=== PATIENT | male | born 1950 | race Caucasian/White ===

== ENCOUNTER 2018-09-21 09:56 | Emergency (ER) | payer MEDICARE ==
[~2018-09-21] VITALS: Ht 167.6 cm; Wt 95.5 kg
[~2018-09-21 09:56] MED LIST: ASPI81 PO; CLIN300C3 PO
[2018-09-21] MEDS ORDERED: LOSA25TA41 PO (10:01)
[2018-09-21] MEDS ORDERED: AmLODIPine BESYLATE 5 MG TABLET PO ONE (10:45)
[2018-09-21 10:52] LABS: BASOPHILS % (AUTO) 0.5 % (0.0-2.0); EOSINOPHILS % (AUTO) 0.2 % (1.0-6.0); HEMATOCRIT 44.6 % (41-53); HEMOGLOBIN 14.9 g/dL (13.5-17.5); LYMPHOCYTES % (AUTO) 11.7 % (22.0-44.0); MEAN CORPUSCULAR HEMOGLOBIN 30.1 pg (26.0-34.0); MEAN CORPUSCULAR HGB CONC 33.3 G/dL (31.0-37.0); MEAN CORPUSCULAR VOLUME 90 fL (80-100); MONOCYTES # (AUTO) 0.7 K/uL (0.1-1.0); MONOCYTES % (AUTO) 7.7 % (2.0-9.0); NEUTROPHILS % (AUTO) 79.9 % (40.0-70.0); PLATELET COUNT (AUTO) 265 K/uL (150-450); RED BLOOD CELL COUNT(AUTO) 4.94 MIL/uL (4.50-5.90); RED CELL DISTRIBUTION WIDTH 13.3 % (11.5-14.5)
[2018-09-21 11:00] LABS: CALCIUM, TOTAL 9.4 mg/dL (8.8-10.5); CREATININE 1.21 mg/dL (0.60-1.30)
[2018-09-21 11:06] LABS: ALBUMIN 3.9 g/dL (3.4-5.0); BILIRUBIN,TOTAL 0.4 mg/dL (0.1-1.0); TOTAL PROTEIN, SERUM 7.4 g/dL (6.4-8.2)
[2018-09-21] MEDS ORDERED: CloNIDine HCL 0.1 MG TABLET PO ONE (12:45)
[2018-09-21 14:00] VITALS: BP 158/89
== END 2018-09-21 14:10 | disposition home or self-care (01) ==
LOC: EMS 09:56
DX: I10 Essential (primary) hypertension (principal); I73.9 Peripheral vascular disease, unspecified; I87.8 Other specified disorders of veins; Z79.899 Other long term (current) drug therapy
CPT/HCPCS: 93005